=== PATIENT | female | born 1955 | race Caucasian/White ===

== ENCOUNTER 2019-03-15 20:58 | Emergency (ER) | payer BC ==
[~2019-03-15] VITALS: Ht 165.1 cm; Wt 57.0 kg
[2019-03-15 23:02] LABS: BASOPHILS % 0.1 % (0.0-2.0); EOSINOPHILS % 0.1 % (0.0-5.0); HEMATOCRIT. 39.4 % (36.0-48.0); HEMOGLOBIN. 13.6 g/dL (12.0-16.0); LYMPHOCYTES % 10.4 % (20.0-50.0); MEAN CORPUSCULAR HEMOGLOBIN 31.1 pg (28.0-32.0); MEAN CORPUSCULAR VOLUME 90.1 fL (81.0-99.0); MEAN PLATELET VOLUME 8.2 fl (7.4-10.4); MONOCYTES % 5.2 % (2.0-8.0); NEUTROPHILS % 84.2 % (40.0-76.0); PLATELET 189 x1000/uL (130-400); RED BLOOD CELL COUNT 4.38 mill/uL (4.2-5.4); RED CELL DISTRIBUTION WIDTH 13.6 % (11.6-14.6)
[2019-03-15 23:08] LABS: CHLORIDE 107 mEq/L (98-107)
[2019-03-15] MEDS ORDERED: ONDANSETRON HCL 4MG/2ML INJ IV STA (23:47)
[2019-03-15] MEDS ORDERED: SODIUM CHLORIDE 0.9% 1,000 ML IV ONE (23:47)
[2019-03-16 00:33] VITALS: BP 124/67
== END 2019-03-16 00:35 | disposition home or self-care (01) ==
LOC: ER 20:58
DX: R42 Dizziness and giddiness (principal); R11.2 Nausea with vomiting, unspecified; H55.00 Unspecified nystagmus
CPT/HCPCS: 36415; 80053; 85025; 96361; 96374; 99283; J2405; J7030; Z7610